=== PATIENT | female | born 1980 | race Caucasian/White ===

== ENCOUNTER 2020-04-15 18:48 | Emergency (ER) | payer MEDICAID, SELFPAY ==
[2020-04-15] VITALS (24 sets, daily range): BP systolic 153–164; BP diastolic 91–107; PULSE 73–108; RESP 8–26; TEMP 37.1; O2SAT 92–98; BMI 37.2
--- NOTE | 2020-04-15 19:30 | ECG_ITS ---
[facility] Test Date: 2020-04-15 Pat Name: Bella King Department: Room: Gender: Female Career Services Coordinator: : 1980 Requested By: Shaggy Ledesma Order Number: [id number] Eduardo MD: Gayla Fernandez M.D. Measurements Intervals [place] Rate: 90 P: 167 MN: 131 QRS: 147 QRSD: 81 T: 182 QT: 377 QTc: 462 Interpretive Statements SINUS RHYTHM ARM LEADS REVERSED [INVERTED P AND QRS IN I] No previous ECG available for comparison Electronically Signed On 04-15-2020 21:55:49 CAMPAIGN SPECIALIST by Gayla Fernandez M.D. [id number]
--- NOTE | 2020-04-15 19:40 | W.ED.ARRPALP ---
HPI - Arrhythmia/Palpitations General: Chief Complaint: Arrhythmia/Palpitations Stated Complaint: ANXIETY Time Seen by Provider: 04/15/20 19:20 History of Present Illness: HPI narrative: 39-year-old female with history of panic disorder. She states that she had a panic attack this morning, and ended up in the [facility], as they were they are visiting. No testing was done. They changed her medicine, as she had recently been placed on sertraline for anxiety. She had not taken her new medication yet, when she had another attack this evening. She says I do not feel right . I feel like I am dying with these . No fever, no cough, no swollen feet. MD complaint: heart racing and palpitations Onset (ago): hour(s) Duration: intermittent Severity: moderate Context: occurred during rest Associated symptoms: Reports anxiety, nausea and short of breath; Deny cough, diaphoresis or vomiting Review of Systems Const: Denies: diaphoresis Eyes: Denies: change in vision ENMT: Denies: odynophagia, swelling of lips/tongue or sinus pain Card: Reports: chest pain, palpitations and swelling of feet/ankles; Denies: irregular heart rhythm Resp: Reports: dyspnea; Denies: productive cough, non-productive cough or wheezing GI: Reports: nausea; Denies: vomiting : Denies: dysuria or hematuria Musc: Denies: neck pain or joint warmth Skin/Breast: Denies: rash or erythema Neuro: Reports: dizziness; Denies: headache(s) or vertigo Psych: Reports: anxiety [facility] Female Reproductive History: Date of last menstrual period: 03/28/20 Physical Exam Const: GENERAL APPEARANCE: well developed ORIENTATION/CONSCIOUSNESS: Yes oriented to person, Yes oriented to place and Yes oriented to time HENMT: COMMON NORMALS: normocephalic, external ears normal and Normal external nose present HEAD & SCALP: normocephalic FACE & SINUS: normal facial exam NOSE: Normal external nose present and No nasal discharge present EXTERNAL EAR: Yes external ears normal Eye: COMMON NORMALS: Equal, round and reactive pupils present, EOMs intact bilaterally and conjunctivae normal EYELID: eyelids normal CONJUNCTIVA: Yes conjunctivae normal PUPIL: Yes Equal, round and reactive pupils present Neck/C-Spine: GENERAL: No tracheal deviation Chest: COMMONS NORMALS: normal inspection of the chest CHEST: No tenderness Resp: COMMON NORMALS: clear to auscultation bilaterally EFFORT & INSPECTION: No tachypneic, No respiratory distress, No retractions, No uses accessory muscles and No tracheal deviation AUSCULTATION: clear to auscultation bilaterally, no rhonchi, no wheezes and lung sounds not diminished Cardio: COMMON NORMALS: regular rate and regular rhythm RATE: regular rate RHYTHM: regular rhythm HEART SOUNDS: no murmurs PERIPHERAL PULSES: radial pulses present GI: INSPECTION: No abdominal distension AUSCULTATION: No Hyperactive bowel sounds present and No Hypoactive bowel sounds present PALPATION: No Guarding due to palpation present (GI) and No Rigid due to palpation PERCUSSION: no dullness to percussion and no tympanic to percussion Neuro: SENSORIUM/ORIENTATION: Yes oriented to person, Yes oriented to place and Yes oriented to time Psych: COMMON NORMALS: mental status grossly normal Skin: COMMON NORMALS: no rashes or lesions noted GENERAL SKIN EXAM: no rashes or lesions noted Course Vital Signs: Vital signs: Vital Signs Temperature 98.8 F 04/15/20 19:01 Pulse Rate 90 04/15/20 22:52 Respiratory Rate 18 04/15/20 22:52 Blood Pressure 153/107 04/15/20 22:52 Pulse Oximetry 97 04/15/20 22:52 MDM - Arrhythmia/Palpitations MDM Narrative: Medical decision making narrative: 39-year-old female with a history of palpitations, and essentially panic. She has chest discomfort as well. Her EKG showed a normal sinus rhythm with no acute ST changes. White blood cell count is 12.7, hemoglobin 12.5. Electrolytes are essentially normal her D-dimer is negative. Her chest x-ray is negative. Her troponin is normal and did not change at 2 hours this may be a reaction to the sertraline she was prescribed, and may be simply panic. At her previous ER visit, she was told to stop the sertraline, and given a prescription for trazodone. She may fill this. I am going to place her on propranolol, which will hopefully help with the palpitations and anxiety as well. Lab Data: Labs: Lab Results 04/15/20 04/15/20 04/15/20 Range/Units 19:38 19:38 19:38 WBC 12.7 H (4.0-10.0) 10^3/ uL RBC 4.32 (4.1-5.3) 10^6/u L Hgb 12.5 (11.5-15.3) g/dL Hct 38.1 (37.0-47.0) % MCV 88.2 (81-99) fL MCH 28.9 (28.0-34.0) pg MCHC 32.8 (30.0-36.0) g/dL RDW 12.3 (12.1-15.1) % Plt Count 345 (130-400) 10^3/c mm MPV 9.7 (7.4-10.4) fL Neut % (Auto) 66.0 % Lymph % (Auto) 28.6 % [place] % (Auto) 4.0 % Eos % (Auto) 0.9 % Baso % (Auto) 0.3 % Neut # (Auto) 8.35 H (1.8-7.7) 10^3/u L Lymph # (Auto) 3.6 (0.8-4.8) 10^3/u L [place] # (Auto) 0.5 (0.2-0.9) 10^3/u L Eos # (Auto) 0.1 (0.0-0.8) 10^3/u L Baso # (Auto) 0.0 (0.0-0.1) 10^3/u L Nucleated RBC % (a uto) 0 % Nucleated RBCs # 0.0 /100WBC D-Dimer 0.39 (0-0.59) ug/mIFE U Sodium 135 L (136-145) mmol/L Potassium 3.8 (3.5-5.1) mmol/L Chloride 101 (98-107) mmol/L Carbon Dioxide 24 (22-29) mmol/L Anion Gap 13.8 (5-19) BUN 8 (6-20) mg/dL Creatinine 0.6 (0.5-0.9) mg/dL GFR Calculation 111.9 (90-130) mL/min Glucose 135 H (65-115) mg/dL Calculated Osmolal ity 280 L (285-295) mOsm/k g Calcium 9.4 (8.5-10.5) mg/dL Total Bilirubin 0.3 (0.15-1.2) mg/dL AST 20 (0-32) U/L ALT 29 (0-33) U/L Alkaline Phosphata se 80 (35-105) IU/L Creatine Kinase 87 (26-192) U/L Troponin T Baselin e (0-10) ng/L Troponin T 120 Min [place] (0-10) ng/L Delta Troponin T (0-10) ABS# NT-Pro-B Natriuret Pep 179 H (0-125) pg/mL Total Protein 6.9 (6.6-8.7) g/dL Albumin 4.4 (3.5-5.2) g/dL Globulin 2.5 (1.3-4.6) g/dL 04/15/20 04/15/20 Range/Units 19:38 21:19 WBC (4.0-10.0) 10^3/ uL RBC (4.1-5.3) 10^6/u L Hgb (11.5-15.3) g/dL Hct (37.0-47.0) % MCV (81-99) fL MCH (28.0-34.0) pg MCHC (30.0-36.0) g/dL RDW (12.1-15.1) % Plt Count (130-400) 10^3/c mm MPV (7.4-10.4) fL Neut % (Auto) % Lymph % (Auto) % [place] % (Auto) % Eos % (Auto) % Baso % (Auto) % Neut # (Auto) (1.8-7.7) 10^3/u L Lymph # (Auto) (0.8-4.8) 10^3/u L [place] # (Auto) (0.2-0.9) 10^3/u L Eos # (Auto) (0.0-0.8) 10^3/u L Baso # (Auto) (0.0-0.1) 10^3/u L Nucleated RBC % (a uto) % Nucleated RBCs # /100WBC D-Dimer (0-0.59) ug/mIFE U Sodium (136-145) mmol/L Potassium (3.5-5.1) mmol/L Chloride (98-107) mmol/L Carbon Dioxide (22-29) mmol/L Anion Gap (5-19) BUN (6-20) mg/dL Creatinine (0.5-0.9) mg/dL GFR Calculation (90-130) mL/min Glucose (65-115) mg/dL Calculated Osmolal ity (285-295) mOsm/k g Calcium (8.5-10.5) mg/dL Total Bilirubin (0.15-1.2) mg/dL AST (0-32) U/L ALT (0-33) U/L Alkaline Phosphata se (35-105) IU/L Creatine Kinase (26-192) U/L Troponin T Baselin e 6 (0-10) ng/L Troponin T 120 Min [place] 6.00 (0-10) ng/L Delta Troponin T 0 (0-10) ABS# NT-Pro-B Natriuret Pep (0-125) pg/mL Total Protein (6.6-8.7) g/dL Albumin (3.5-5.2) g/dL Globulin (1.3-4.6) g/dL Discharge Plan Discharge Patient Disposition: Home Clinical Impression: Palpitations Condition: Stable Prescriptions: New propranolol 60 mg capsule,extended release 24 hr 60 mg PO DAILY Qty: 30 RF: 0 Discharge Orders: Discharge ED (Routine); Ordered 04/15/20 Ordered By: Shaggy Chung Referrals: Dallas Gunn DO [Primary Care Provider] - 4-7 days Discharge Diet: Advance as tolerated Discharge Activity: Increase activity as tolerated Patient Instructions: Palpitations (ED) Activity Restrictions/Additional Instructions: Stop your sertraline, in case it is making your symptoms worse. Follow-up with your doctor. You have been prescribed propranolol, which can help with symptoms of heart pounding. We suggest that you check your blood pressure twice daily as well as your heart rate. Return for worsening symptoms despite treatment. Coding Level of Care Code ED Unit Leader for Chg Fwd Exam Comprehensive
[2020-04-15 19:44] LABS: Basophils % 0.3 %; Eosinophils # 0.1 10^3/uL (0.0-0.8); Eosinophils % 0.9 %; Hematocrit 38.1 % (37.0-47.0); Hemoglobin 12.5 g/dL (11.5-15.3); Lymphocytes # 3.6 10^3/uL (0.8-4.8); Lymphocytes % 28.6 %; Mean Corpuscular HGB Conc 32.8 g/dL (30.0-36.0); Mean Corpuscular Hemoglobin 28.9 pg (28.0-34.0); Mean Corpuscular Volume 88.2 fL (81-99); Mean Platelet Volume 9.7 fL (7.4-10.4); Monocytes # 0.5 10^3/uL (0.2-0.9); Neutrophils # 8.35 10^3/uL (1.8-7.7); Nucleated Red Blood Cells % 0 %; Platelet Count 345 10^3/cmm (130-400); Red Blood Count 4.32 10^6/uL (4.1-5.3); Red Cell Distribution Width 12.3 % (12.1-15.1); White Blood Count 12.7 10^3/uL (4.0-10.0)
[2020-04-15 20:13] LABS: D Dimer 0.39 ug/mIFEU (0-0.59)
[2020-04-15 20:20] LABS: Troponin(5th) Baseline 6 ng/L (0-10)
[2020-04-15 20:29] LABS: Alanine Aminotransferase 29 U/L (0-33); Albumin Level 4.4 g/dL (3.5-5.2); Alkaline Phosphatase 80 IU/L (35-105); Anion Gap 13.8 (5-19); Aspartate Amino Transferase 20 U/L (0-32); Blood Urea Nitrogen 8 mg/dL (6-20); Calcium 9.4 mg/dL (8.5-10.5); Carbon Dioxide 24 mmol/L (22-29); Chloride 101 mmol/L (98-107); Creatine Phosphokinase 87 U/L (26-192); Creatinine Clr Calc Pharmacy 139.5661; Globulin 2.5 g/dL (1.3-4.6); Glomerular Filtration Rate 111.9 mL/min (90-130); Glucose 135 mg/dL (65-115); NT Pro B Type Natriuretic Pept 179 pg/mL (0-125); Osmolality Calculated 280 mOsm/kg (285-295); Potassium 3.8 mmol/L (3.5-5.1); Sodium 135 mmol/L (136-145); Total Bilirubin 0.3 mg/dL (0.15-1.2); Total Protein 6.9 g/dL (6.6-8.7)
--- NOTE | 2020-04-15 21:30 | ECG_ITS ---
[facility] Test Date: 2020-04-15 Pat Name: Bella King Department: Room: Gender: Female Internal Grinding Machine Operator: : 1980 Requested By: Shaggy Ledesma Order Number: [id number] Eduardo MD: Gayla Fernandez M.D. Measurements Intervals [place] Rate: 90 P: 167 VT: 131 QRS: 147 QRSD: 81 T: 182 QT: 377 QTc: 462 Interpretive Statements SINUS RHYTHM ARM LEADS REVERSED [INVERTED P AND QRS IN I] No previous ECG available for comparison Electronically Signed On 04-15-2020 21:59:53 ANALYTICS CONSULTANT by Gayla Fernandez M.D. [id number]
[2020-04-15 21:59] LABS: Troponin 5 2HR Delta 0 ABS# (0-10)
--- NOTE | 2020-04-15 22:15 | XRR_ITS ---
PROCEDURE INFORMATION: Exam: XR Chest, 1 View Exam date and time: 04/15/2020 10:20 PM Age: 39 years old Clinical indication: Other: Palpitations TECHNIQUE: Imaging protocol: XR of the chest Views: 1 view. COMPARISON: [facility] Chest 2 views 07/16/2018 4:09 PM FINDINGS: Lungs: Unremarkable. No consolidation. Pleural space: Unremarkable. No pleural effusion. No pneumothorax. Heart/Mediastinum: Unremarkable. No cardiomegaly. Bones/joints: Unremarkable. XR/XR chest 1V portable [id number] IMPRESSION: No acute findings.
== END 2020-04-15 22:57 | disposition home or self-care (01) ==
PROVIDERS: Emergency Provider Emergency Medicine; PCP Internal Medicine
DX: R00.2 Palpitations (principal)
CPT/HCPCS: 12345; 71045; 80053; 82550; 83880; 84484; 85025; 85378; 93005; 99283

== ENCOUNTER 2020-05-25 03:03 | Emergency (ER) | payer MEDICAID, SELFPAY ==
--- NOTE | 2020-05-25 03:04 | XR_ITS ---
WS: [id number] Exam: XR chest 1V portable [id number] Date/Time of Exam: 05/25/2020 3:16 AM Reason For Exam: dizzy Comparison 04/15/2020. Findings: The lungs are clear and fully expanded. Costophrenic angles are sharp. No infiltrates. Bronchovascula r relief appears normal. Cardiac silhouette is unremarkable. Bony elements are intact. XR/XR chest 1V portable [id number] IMPRESSION: Unremarkable chest radiograph.
--- NOTE | 2020-05-25 03:05 | ECG_ITS ---
[facility] Test Date: 2020-05-25 Pat Name: Bella King Department: Room: Gender: Female Operating System Programmer: : 1980 Requested By: Yesika Turner Order Number: [id number] Eduardo MD: Carlie Cooley M.D. Measurements Intervals [place] Rate: 82 P: 14 OK: 80 QRS: 59 QRSD: 88 T: 5 QT: 372 QTc: 436 Interpretive Statements SINUS RHYTHM WITH SHORT OK INTERVAL Compared to ECG 04/15/2020 19:16:20 Short OK interval now present Electronically Signed On 05-25-2020 18:03:04 POULTRY SLAUGHTERER by Carlie Cooley M.D. [id number]
[2020-05-25 03:10] VITALS: BP 156/83; PULSE 101; RESP 18; TEMP 36.8; O2SAT 98; BMI 39.8
[2020-05-25 03:14] VITALS: BP 156/83; PULSE 92; O2SAT 98
--- NOTE | 2020-05-25 03:17 | ED_ITS ---
HPI - Nausea/Vomiting/Diarrhea General: Chief complaint: Nausea/Vomiting/Diarrhea Stated complaint: NAUSEA, DIZZY, WEAK LEGS/WOBBLY, HIGH BLOOD SUGAR Time Seen by Provider: 05/25/20 03:05 Source: patient Mode of arrival: ambulatory Limitations: no limitations History of Present Illness: HPI Narrative: This is a 39-year-old female states over the last month to 6 weeks she has been having difficulty with anxiety along with nausea dizziness. She states she initially was on Zoloft that made her symptoms worse. She states she then took propanol and she stopped due to her asthma. She states she is currently on BuSpar but continues to have this nausea and feeling very anxious. She states that tonight she been checking her blood sugar and she was quite concerned as it ranged from 1 10-1 70. She states she has felt dizzy and nauseated. She denies any pain anywhere. She denies passing out. She denies any vomiting. Denies any worsening improving factors. Associated nausea: Yes Associated symtoms: Reports dizziness and nausea; Denies chest pain, dysuria or headache(s) Review of Systems Const: Denies: fever(s), chills, body aches or change in appetite Eyes: Denies: blurry vision or eye discomfort ENMT: Denies: throat pain or dental pain Card: Denies: chest pain Resp: Denies: dyspnea GI: Reports: nausea : Denies: dysuria Musc: Reports: muscle weakness Skin/Breast: Denies: rash Neuro: Reports: dizziness; Denies: headache(s) Psych: Denies: depression [place]/Lymph: Denies: easy bruising All/Imm: Denies: urticaria [facility] Female Reproductive History: Date of last menstrual period: 03/28/20 Physical Exam Const: COMMON NORMALS: no acute distress, patient oriented x3 and healthy appearing HENMT: COMMON NORMALS: normocephalic and atraumatic HEAD & SCALP: normocephalic and atraumatic Eye: COMMON NORMALS: Equal, round and reactive pupils present and EOMs intact bilaterally PUPIL: Yes Equal, round and reactive pupils present Neck/C-Spine: COMMON NORMALS: full ROM and supple Chest: COMMONS NORMALS: normal inspection of the chest and normal palpation of entire chest wall Resp: COMMON NORMALS: normal respiratory effort, No retractions, No use of accessory muscles and clear to auscultation bilaterally AUSCULTATION: clear to auscultation bilaterally Cardio: COMMON NORMALS: regular rate, regular rhythm and No murmurs present (Cardio) RATE: regular rate RHYTHM: regular rhythm GI: COMMON NORMALS: Normal to inspection, nondistended, normoactive bowel sounds present, Soft to palpation, non-tender and no masses PALPATION: Yes Soft to palpation Extremity: COMMON NORMALS: normal to inspection and full ROM Neuro: COMMON NORMALS: patient oriented x3, moves all extremities and no focal motor deficits Psych: COMMON NORMALS: mental status grossly normal, Normal thought process present and cooperative THOUGHT PROCESS: Normal thought process present Skin: COMMON NORMALS: no rashes or lesions noted and no wounds GENERAL SKIN EXAM: no rashes or lesions noted Course Vital Signs: Vital signs: Vital Signs Temperature 98.2 F 05/25/20 03:10 Pulse Rate 101 H 05/25/20 03:10 Respiratory Rate 18 05/25/20 03:10 Blood Pressure 156/83 05/25/20 03:10 Pulse Oximetry 98 05/25/20 03:10 MDM - Nausea/Vomiting/Diarrhea MDM Narrative: Medical decision making narrative: Patient presents here with nausea along with some dizziness. This been going on for weeks. Her exam here is benign and blood work is all normal. Will prescribe her Reglan and she is to follow-up with her PCP in 3 to 5 days return if worsening. She understands agrees to plan. Lab Data: Labs: Lab Results 05/25/20 05/25/20 05/25/20 Range/Units 03:25 03:25 03:30 WBC 10.9 H (4.0-10.0) 10^3/ uL RBC 4.25 (4.1-5.3) 10^6/u L Hgb 12.6 (11.5-15.3) g/dL Hct 38.2 (37.0-47.0) % MCV 89.9 (81-99) fL MCH 29.6 (28.0-34.0) pg MCHC 33.0 (30.0-36.0) g/dL RDW 12.8 (12.1-15.1) % Plt Count 380 (130-400) 10^3/c mm MPV 9.8 (7.4-10.4) fL Neut % (Auto) 55.1 % Lymph % (Auto) 38.5 % [place] % (Auto) 4.0 % Eos % (Auto) 1.8 % Baso % (Auto) 0.4 % Neut # (Auto) 6.02 (1.8-7.7) 10^3/u L Lymph # (Auto) 4.2 (0.8-4.8) 10^3/u L [place] # (Auto) 0.4 (0.2-0.9) 10^3/u L Eos # (Auto) 0.2 (0.0-0.8) 10^3/u L Baso # (Auto) 0.0 (0.0-0.1) 10^3/u L Nucleated RBC % (a uto) 0 % Nucleated RBCs # 0.0 /100WBC Sodium 140 (136-145) mmol/L Potassium 4.0 (3.5-5.1) mmol/L Chloride 105 (98-107) mmol/L Carbon Dioxide 19 L (22-29) mmol/L Anion Gap 20.0 H (5-19) BUN 16 (6-20) mg/dL Creatinine 0.7 (0.5-0.9) mg/dL GFR Calculation 93.6 (90-130) mL/min Glucose 131 H (65-115) mg/dL POC Glucose 125 H (70-110) mg/dL Calculated Osmolal ity 293 (285-295) mOsm/k g Calcium 9.4 (8.5-10.5) mg/dL Total Bilirubin 0.2 (0.15-1.2) mg/dL AST 16 (0-32) U/L ALT 12 (0-33) U/L Alkaline Phosphata se 58 (35-105) IU/L Total Protein 7.0 (6.6-8.7) g/dL Albumin 4.2 (3.5-5.2) g/dL Globulin 2.8 (1.3-4.6) g/dL HCG, Qual (Negative) Urine Color (Yellow) Urine Appearance (CLEAR) Urine pH (5-7) Ur Specific Gravit y (1.005-1.030) Urine Protein (Negative) Urine Glucose (UA) (Normal) Urine Ketones (Negative) Urine Blood (Negative) Urine Nitrate (Negative) Urine Bilirubin (Negative) Urine Urobilinogen (Negative) mg/dL Ur Leukocyte Rufina ase (Negative) Urine RBC (0-2) /hpf Urine WBC (0-5) /hpf Ur Squamous Epith Cells (0-5) /hpf Amorphous Sediment Urine Bacteria (NONE) /hpf Urine Mucus /hpf Serum Ketones (Negative) 05/25/20 05/25/20 05/25/20 Range/Units 03:30 03:30 04:04 WBC (4.0-10.0) 10^3/ uL RBC (4.1-5.3) 10^6/u L Hgb (11.5-15.3) g/dL Hct (37.0-47.0) % MCV (81-99) fL MCH (28.0-34.0) pg MCHC (30.0-36.0) g/dL RDW (12.1-15.1) % Plt Count (130-400) 10^3/c mm MPV (7.4-10.4) fL Neut % (Auto) % Lymph % (Auto) % [place] % (Auto) % Eos % (Auto) % Baso % (Auto) % Neut # (Auto) (1.8-7.7) 10^3/u L Lymph # (Auto) (0.8-4.8) 10^3/u L [place] # (Auto) (0.2-0.9) 10^3/u L Eos # (Auto) (0.0-0.8) 10^3/u L Baso # (Auto) (0.0-0.1) 10^3/u L Nucleated RBC % (a uto) % Nucleated RBCs # /100WBC Sodium (136-145) mmol/L Potassium (3.5-5.1) mmol/L Chloride (98-107) mmol/L Carbon Dioxide (22-29) mmol/L Anion Gap (5-19) BUN (6-20) mg/dL Creatinine (0.5-0.9) mg/dL GFR Calculation (90-130) mL/min Glucose (65-115) mg/dL POC Glucose (70-110) mg/dL Calculated Osmolal ity (285-295) mOsm/k g Calcium (8.5-10.5) mg/dL Total Bilirubin (0.15-1.2) mg/dL AST (0-32) U/L ALT (0-33) U/L Alkaline Phosphata se (35-105) IU/L Total Protein (6.6-8.7) g/dL Albumin (3.5-5.2) g/dL Globulin (1.3-4.6) g/dL HCG, Qual Negative (Negative) Urine Color Yellow (Yellow) Urine Appearance Clear (CLEAR) Urine pH 5.0 (5-7) Ur Specific Gravit y 1.020 (1.005-1.030) Urine Protein Neg (Negative) Urine Glucose (UA) Norm (Normal) Urine Ketones Negative (Negative) Urine Blood 2+ H (Negative) Urine Nitrate Negative (Negative) Urine Bilirubin Neg (Negative) Urine Urobilinogen Norm (Negative) mg/dL Ur Leukocyte Rufina ase Negative (Negative) Urine RBC 0-4 H (0-2) /hpf Urine WBC 10-15 H (0-5) /hpf Ur Squamous Epith Cells None (0-5) /hpf Amorphous Sediment Not Reportable Urine Bacteria 2+ H (NONE) /hpf Urine Mucus 1+ /hpf Serum Ketones Negative (Negative) Imaging Data^: CXR: Radiologist's impression: no acute abnormalities EKG Data^: EKG 1: Attestation: I personally reviewed and interpreted this EKG as follows: EKG interpretation date: 05/25/20 EKG interpretation time: 03:35 Interpretation: nsr hr [address] abnormalities qrs 88 qtc 411 Discharge Plan Discharge Patient Disposition: Home Clinical Impression: Dizziness Vomiting Qualifiers: Vomiting type: unspecified Vomiting Intractability: non-intractable Nausea presence: with nausea Qualified Code(s): R11.2 - Nausea with vomiting, unspecified Condition: Stable Prescriptions: New Reglan 10 mg tablet 10 mg PO Q6H PRN (Reason: nausea and vomiting) Qty: 20 RF: 0 No Action propranolol 60 mg capsule,extended release 24 hr 60 mg PO DAILY Qty: 30 RF: 0 Discharge Orders: Discharge ED (Routine); Ordered 05/25/20 Ordered By: Yesika Turner Referrals: Dallas Gunn DO [Primary Care Provider] - 1-3 days Discharge Diet: Advance as tolerated Discharge Activity: Resume usual activity Patient Instructions: Acute Nausea and Vomiting (ED) Coding Level of Care Code ED Supervisor Pullet Farm for Chg Fwd Exam Comprehensive
[2020-05-25 03:30] LABS: Glucose Point of Care 125 mg/dL (70-110)
[2020-05-25] MEDS: sodium chloride 0.9% 1,000 ML 999 ML IV (03:33)
[2020-05-25] MEDS: ondansetron 2 mg/ML SDV 2 mL 4 MG IVP (03:33)
[2020-05-25 04:05] LABS: Basophils % 0.4 %; Eosinophils # 0.2 10^3/uL (0.0-0.8); Eosinophils % 1.8 %; Hematocrit 38.2 % (37.0-47.0); Hemoglobin 12.6 g/dL (11.5-15.3); Lymphocytes # 4.2 10^3/uL (0.8-4.8); Lymphocytes % 38.5 %; Mean Corpuscular Hemoglobin 29.6 pg (28.0-34.0); Mean Corpuscular Volume 89.9 fL (81-99); Mean Platelet Volume 9.8 fL (7.4-10.4); Monocytes # 0.4 10^3/uL (0.2-0.9); Neutrophils # 6.02 10^3/uL (1.8-7.7); Neutrophils % 55.1 %; Nucleated Red Blood Cells % 0 %; Platelet Count 380 10^3/cmm (130-400); Red Blood Count 4.25 10^6/uL (4.1-5.3); Red Cell Distribution Width 12.8 % (12.1-15.1); White Blood Count 10.9 10^3/uL (4.0-10.0)
[2020-05-25 04:08] LABS: Ketone (Acetest) Serum Negative (Negative)
[2020-05-25 04:20] VITALS: BP 128/91; PULSE 91; O2SAT 98
[2020-05-25 04:31] LABS: HCG Qualitative Urine. Negative (Negative)
[2020-05-25 04:40] LABS: Urine Appearance Clear (CLEAR); Urine Color Yellow (Yellow)
[2020-05-25 04:41] LABS: Add Urine Culture? Yes; Add Urine Microscopic? YES; Bacteria Urine 2+ /hpf; Bilirubin Urine Neg (Negative); Blood Urine 2+ (Negative); Glucose Urine UA Norm (Normal); Ketones Urine Negative (Negative); Leukocyte Esterase Urine Negative (Negative); Mucus Urine 1+ /hpf; Nitrate Urine Negative (Negative); Protein Urine Neg (Negative); RBC Urine 0-4 /hpf (0-2); Urobilinogen Urine Norm (Negative)
[2020-05-25 04:47] LABS: Alanine Aminotransferase 12 U/L (0-33); Albumin Level 4.2 g/dL (3.5-5.2); Alkaline Phosphatase 58 IU/L (35-105); Aspartate Amino Transferase 16 U/L (0-32); Blood Urea Nitrogen 16 mg/dL (6-20); Calcium 9.4 mg/dL (8.5-10.5); Carbon Dioxide 19 mmol/L (22-29); Chloride 105 mmol/L (98-107); Globulin 2.8 g/dL (1.3-4.6); Glomerular Filtration Rate 93.6 mL/min (90-130); Glucose 131 mg/dL (65-115); Osmolality Calculated 293 mOsm/kg (285-295); Sodium 140 mmol/L (136-145); Total Bilirubin 0.2 mg/dL (0.15-1.2)
[2020-05-25] MEDS: diphenhydrAMINE 50 mg/mL SDV 1mL 25 MG IVP (04:52)
[2020-05-25] MEDS: metoclopramide 5 mg/mL SDV 2 mL IVP (04:55)
[2020-05-25 05:22] VITALS: BP 130/90; PULSE 77; RESP 18; O2SAT 96
== END 2020-05-25 05:22 | disposition home or self-care (01) ==
PROVIDERS: Emergency Provider Emergency Medicine; PCP Internal Medicine
DX: R11.2 Nausea with vomiting, unspecified (principal); R42 Dizziness and giddiness
CPT/HCPCS: 12345; 36416; 71045; 80053; 81001; 81025; 82009; 82962; 85025; 87086; 93005; 96361; 96374; 96375; 99283; 99284; J1200; J2405; J2765; J7030

== ENCOUNTER 2021-02-13 16:07 | Outpatient (CLI) | payer MEDICAID, SELFPAY ==
[2021-02-13 17:15] LABS: Basophils % 0.3 %; Eosinophils # 0.2 10^3/uL (0.0-0.8); Eosinophils % 1.9 %; Hematocrit 40.2 % (37.0-47.0); Hemoglobin 13.6 g/dL (11.5-15.3); Lymphocytes # 3.3 10^3/uL (0.8-4.8); Lymphocytes % 31.2 %; Mean Corpuscular HGB Conc 33.8 g/dL (30.0-36.0); Mean Corpuscular Hemoglobin 29.1 pg (28.0-34.0); Mean Corpuscular Volume 85.9 fl (81-99); Mean Platelet Volume 10.4 fL (7.4-10.4); Monocytes # 0.5 10^3/uL (0.2-0.9); Monocytes % 4.5 %; Neutrophils # 6.47 10^3/uL (1.8-7.7); Neutrophils % 61.9 %; Nucleated Red Blood Cells % 0 %; Platelet Count 321 10^3/cmm (130-400); Red Blood Count 4.68 10^6/uL (4.1-5.3); Red Cell Distribution Width 12.5 % (12.1-15.1); White Blood Count 10.5 10^3/uL (4.0-10.0)
[2021-02-13 17:39] LABS: Alanine Aminotransferase 16 U/L (0-33); Albumin Level 4.2 g/dL (3.5-5.2); Alkaline Phosphatase 80 IU/L (35-105); Aspartate Amino Transferase 17 U/L (0-32); Blood Urea Nitrogen 12 mg/dL (6-20); Calcium 8.9 mg/dL (8.5-10.5); Carbon Dioxide 21 mmol/L (22-29); Chloride 100 mmol/L (98-107); Chol HDL Ratio 4.38 mg/dL (0.0-4.40); Cholesterol 197 mg/dL (0-200); Globulin 2.8 g/dL (1.3-4.6); Glomerular Filtration Rate 111.3 mL/min (90-130); Glucose 88 mg/dL (65-115); HDL Cholesterol 45 mg/dL (60-100); LDL Cholesterol Calculated 93 mg/dL (50-129); LDL HDL Ratio 2.07 RATIO (0.00-3.22); Osmolality Calculated 279 mOsm/kg (285-295); Sodium 135 mmol/L (136-145); Total Bilirubin 0.2 mg/dL (0.15-1.2); Triglycerides 296 mg/dL (0-150)
[2021-02-13 17:49] LABS: Anion Gap 18.1 (5-19); Potassium 4.1 mmol/L (3.5-5.1)
== END 2021-02-13 16:08 | disposition home or self-care (01) ==
PROVIDERS: PCP Family Medicine; Visit Provider Family Medicine
DX: E66.9 Obesity, unspecified (principal); F41.0 Panic disorder [episodic paroxysmal anxiety]; F41.1 Generalized anxiety disorder; J30.2 Other seasonal allergic rhinitis; J45.30 Mild persistent asthma, uncomplicated; Z13.220 Encounter for screening for lipoid disorders; Z13.6 Encounter for screening for cardiovascular disorders; Z76.89 Persons encountering health services in other specified circumstances
CPT/HCPCS: 36415; 80053; 80061; 84443; 85025

== ENCOUNTER → 2021-07-04 17:15 | Outpatient (BNVA) | payer MEDICAID, SELFPAY | PROVIDERS: PCP Family Medicine; Visit Provider Nurse Practitioner Family | DX: N39.0 Urinary tract infection, site not specified (principal) | CPT/HCPCS: 81000 ==

== ENCOUNTER → 2021-07-11 16:02 | Outpatient (BNVA) | payer MEDICAID, SELFPAY | PROVIDERS: PCP Family Medicine; Visit Provider Family Medicine | DX: R30.0 Dysuria (principal); R10.31 Right lower quadrant pain | CPT/HCPCS: 81000; 87086 ==

== ENCOUNTER 2022-07-23 21:15 | Emergency (ER) | payer MEDICAID, SELFPAY ==
[2022-07-23 21:38] VITALS: BP 154/99; PULSE 84; RESP 18; TEMP 36.6; O2SAT 98; BMI 42.5
--- NOTE | 2022-07-23 21:53 | W.ED.HEATRA ---
HPI - Head Injury General: Chief complaint: Head Injury Stated complaint: door fell on head, worried about concussion? 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 While walking across to stage a door came down and struck her against the right side of her head. Patient denies any loss of consciousness. Patient reports mild headache with some difficulty thinking. Patient appears in no pain. Patient appears nontoxic. Patient does have a history of obesity, anxiety disorder, asthma, and GERD. Associated symptoms: Deny nausea, neck pain or vomiting Review of Systems General: Reports: 10 or more systems reviewed and unremarkable except in HPI and below Const: Denies: fever(s) ENMT: Reports: epistaxis Card: Denies: chest pain Resp: Denies: dyspnea GI: Denies: nausea or vomiting : Denies: difficulty voiding Musc: Denies: neck pain Skin/Breast: Denies: rash Neuro: Denies: lack of coordination or dizziness Psych: Denies: anxiety PFSH ED PFSH: Social History Smoking and tobacco status: never smoked Alcohol intake: never Female Reproductive History: Spontaneous abortions: No Physical Exam Const: COMMON NORMALS: patient oriented x3 and alert HENMT: COMMON NORMALS: normocephalic HEAD & SCALP: normocephalic Neck/C-Spine: COMMON NORMALS: full ROM CERVICAL SPINE: No Cervical spine tenderness and Yes Paracervical muscle tenderness (Right trapezius) Resp: COMMON NORMALS: normal respiratory effort and clear to auscultation bilaterally AUSCULTATION: clear to auscultation bilaterally Cardio: COMMON NORMALS: regular rate and regular rhythm RATE: regular rate RHYTHM: regular rhythm GI: COMMON NORMALS: Soft to palpation and non-tender PALPATION: Yes Soft to palpation : COMMON NORMALS: Yes no CVA tenderness BLADDER/KIDNEY EXAM: Yes no CVA tenderness Back/Pelvis: COMMON NORMALS: no CVA tenderness Extremity: COMMON NORMALS: normal to inspection Neuro: COMMON NORMALS: patient oriented x3 SENSORIUM/ORIENTATION: Yes alert Skin: COMMON NORMALS: turgor normal GENERAL SKIN EXAM: turgor normal Course Vital Signs: Vital signs: Vital Signs Temperature 97.8 F 07/23/22 21:38 Pulse Rate 84 07/23/22 21:38 Respiratory Rate 18 07/23/22 21:38 Blood Pressure 154/99 07/23/22 21:38 Pulse Oximetry 98 07/23/22 21:38 Oxygen Delivery Me thod 07/23/22 21:38 MDM - Head Injury Medcial Decision Making 41-year-old female comes in today with complaints of head injury. On exam no obvious sign of injuries noted to the scalp. Pupils are equal and reactive. No blood is noted in the nose. Or posterior pharynx. Bilateral TMs are normal. Patient moves neck without difficulty. No tenderness is noted along the cervical spine. Patient does have some muscle tenderness in the right trapezius. Vital signs normal except for some mild elevation of blood pressure at 154 systolic. Differential diagnosis includes concussion, mild head injury, contusions. No signs of serious injury or illness is noted. Reviewed exam with patient with recommendations for monitoring and follow-up. Patient and spouse both reported understanding agreed to plan. Discharge Plan Discharge Patient Disposition: Home Clinical Impression: Head injury Qualifiers: Encounter type: initial encounter Qualified Code(s): S09.90XA - Unspecified injury of head, initial encounter Condition: Stable Prescriptions: No Action dicyclomine 10 mg capsule 10 mg PO BID fluticasone propionate 110 mcg/actuation HFA aerosol inhaler 1 puff inhalation BID Qty: 12 5RF azithromycin [Zithromax Z-Carloz] 250 mg tablet See Rx Instructions PO .COMPLEX Qty: 6 0RF Rx Instructions: take 500 mg today (day 1), then 250 mg for 4 days (days 2-5) PO prednisone 20 mg tablet See Rx Instructions PO DAILY Qty: 17 0RF Rx Instructions: Take 2 tabs daily x 5 days, then one tab daily x 5 days, then 1/2 tab daily x 4 days. escitalopram oxalate 10 mg tablet See Rx Instructions .ROUTE .COMPLEX Qty: 90 2RF Dose Instruction: Take 1 tablet by mouth once daily Rx Instructions: Take 1 tablet by mouth once daily montelukast 10 mg tablet See Rx Instructions .ROUTE .COMPLEX Qty: 30 5RF Dose Instruction: Take 1 tablet by mouth once daily Rx Instructions: Take 1 tablet by mouth once daily albuterol sulfate [ProAir HFA] 90 mcg/actuation HFA aerosol inhaler 1 inh inhalation QID PRN (Reason: shortness of breath or wheezing) Qty: 8.5 2RF pantoprazole 40 mg tablet,delayed release (DR/EC) See Rx Instructions .ROUTE .COMPLEX Qty: 30 0RF Dose Instruction: Take 1 tablet by mouth once daily Rx Instructions: Take 1 tablet by mouth once daily ipratropium-albuterol 0.5 mg-3 mg(2.5 mg base)/3 mL solution for nebulization 3 ml inhalation Q4H PRN (Reason: wheezing) Qty: 90 2RF alprazolam 0.25 mg tablet 0.25 mg PO DAILY PRN (Reason: anxiety) Qty: 30 2RF Discharge Orders: Discharge ED (Routine); Ordered 07/23/22 Ordered By: Demetrio Garcia Referrals: Colton Cardenas DO [Primary Care Provider] - Discharge Diet: Usual diet Discharge Activity: Increase activity as tolerated Patient Instructions: Head Injury (ED) Activity Restrictions/Additional Instructions: Home and rest. Use acetaminophen or ibuprofen for pain. Drink plenty of water. Try to limit screen time as much as possible for the next 48 hours. Increase activity then as tolerated. Follow-up with primary care as needed. Return to ED for worsening symptoms such as persistent vomiting, worsening headache, seizure activity, or unresponsiveness. Patient should be checked on every 2-3 hours at night. 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
== END 2022-07-23 22:07 | disposition home or self-care (01) ==
PROVIDERS: Emergency Provider Nurse Practitioner Family; PCP Family Medicine
DX: S09.8XXA Other specified injuries of head, initial encounter (principal); W20.8XXA Other cause of strike by thrown, projected or falling object, initial encounter
CPT/HCPCS: 99282

== ENCOUNTER → 2022-09-24 10:08 | Outpatient (BNVA) | payer MEDICAID, SELFPAY | PROVIDERS: PCP Family Medicine; Visit Provider Podiatrist Foot & Ankle Surgery | DX: M76.821 Posterior tibial tendinitis, right leg; Q66.71 Congenital pes cavus, right foot; S93.401A Sprain of unspecified ligament of right ankle, initial encounter; W54.1XXA Struck by dog, initial encounter | CPT/HCPCS: 73610 ==

== ENCOUNTER 2022-10-11 13:38 | Outpatient (CLI) | payer MEDICAID, SELFPAY ==
--- NOTE | 2022-10-11 13:45 | MR_ITS ---
WS: [id number] EXAMINATION: MR ankle RT wo con* [id number] ORDER DATE: 10/11/2022 2:05 PM COMPARISON: None. HISTORY: Right ankle pain CONTRAST: None. TECHNIQUE: Axial proton density fat sat, axial T1, sagittal proton density, sagittal STIR, coronal T2 fat sat, and coronal T1 sequences performed. After contrast, axial T1 fat sat, coronal T1 fat sat, and sagittal T1 fat sat were performed. FINDINGS: Normal ankle mortise. Normal medial and lateral malleolus. Normal talar dome. Normal calcaneus. Catalina l talus. Normal talonavicular articulation. Distal Achilles appears normal. Trace fluid in the retroc alcaneal bursa. Palpable marker overlying the tip of the medial malleolus. Underlying subcutaneous and soft tissue ed jun. Trace tenosynovitis underlying tibialis posterior. Normal flexor digitorum longus.Tenosynovitis peroneal tendon sheath. Peroneus longus and brevis intact. Base of 5th metatarsal is normal in appearance. Normal cuneiforms. Normal ATFL. Normal calcaneofibula r ligament. Normal PTFL. MR/MR ankle RT wo con* [id number] IMPRESSION: 1. Palpable marker overlying the tip of the medial malleolus. No avulsion frac tures. Diffuse edema deep to the palpable marker. 2. Normal deltoid ligament. 3. Trace tenosynovitis tibialis posterior. 4. Tenosynovitis peroneal tendon sheath. 5. Trace fluid in the retrocalcaneal bursa. 6. ATFL appears intact. Calcaneofibular ligament appears intact.
== END 2022-10-11 13:39 | disposition home or self-care (01) ==
PROVIDERS: PCP Family Medicine; Visit Provider Podiatrist Foot & Ankle Surgery
DX: M76.821 Posterior tibial tendinitis, right leg (principal); M25.571 Pain in right ankle and joints of right foot; M84.373A Stress fracture, unspecified ankle, initial encounter for fracture; R60.0 Localized edema
CPT/HCPCS: 73721

== ENCOUNTER → 2022-11-18 10:13 | Outpatient (BNVA) | payer MEDICAID, SELFPAY | PROVIDERS: PCP Family Medicine; Visit Provider Family Medicine | DX: J45.40 Moderate persistent asthma, uncomplicated (principal); R23.2 Flushing; K21.9 Gastro-esophageal reflux disease without esophagitis; E66.9 Obesity, unspecified; Z13.220 Encounter for screening for lipoid disorders; Z13.6 Encounter for screening for cardiovascular disorders; F41.1 Generalized anxiety disorder; F41.0 Panic disorder [episodic paroxysmal anxiety]; E83.52 Hypercalcemia | CPT/HCPCS: 80053; 80061; 82306; 82607; 83036; 84439; 84443; 85025 ==

== ENCOUNTER 2023-04-08 18:50 | Emergency (ER) | payer MEDICAID, SELFPAY ==
[2023-04-08 19:01] VITALS: BP 179/119; PULSE 82; RESP 17; TEMP 36.6; O2SAT 100; BMI 44.6
--- NOTE | 2023-04-08 21:10 | W.ED.HA ---
HPI - Headache General: Chief Complaint: Headache Stated Complaint: Blood Pressure Time Seen by Provider: 04/08/23 18:56 History of Present Illness: 42-year-old female presents emergency room department complaints of a 4 out of 10 throbbing headache. She still she states she feels like she has significant head pressure all over. She states she was seen by her primary care provider and told to take her blood pressure for 1 week and then to follow-up. She states that she took her blood pressure and her blood pressure was significantly elevated to a systolic of 150s. She states that she became more concerned as she does have anxiety component and is very concerned about her blood pressure. She denies shortness of breath dizziness or lightheaded feeling. She denies difficulty with vision or neck pain. She denies chest pain. Review of Systems General: Reports: 10 or more systems reviewed and unremarkable except in HPI and below Neuro: Reports: headache(s) [facility] ED PFSH: Social History Smoking and tobacco/nicotine status: never used tobacco/nicotine Alcohol intake: never Substance/Drug Use: never Female Reproductive History: Spontaneous abortions: No Physical Exam Narrative: EXAM NARRATIVE: Constitutional: the patient appears well nourished and with normal development. Vital signs reviewed as documented. HENMT: Normocephalic, atraumatic. Extermal ears with normal appearance without drainage. Nose without drainage, normal appearance. Mucus membranes moist. Neck is supple, No jugular venous distension, trachea is midline, no appreciable carotid bruits. No lymphadenopathy. No meningeal signs. Flexion, extension and lateral rotation is without pain. Eyes: Pupils are equal, round, reactive to light and accommodation. No scleral icterus. Extra-ocular movement are intact. Thorax is symmetrical and with equal rise and fall with respirations. Resp: Lungs are clear to auscultation. No wheezes, rales, crackles or ronchi at present. Cardio: Regular rate and rhythm. Positive S1, S2. No appreciable murmurs, rubs or gallops. GI: Abdominal exam reveals normal bowel sounds to all quadrants. No organomegaly. No obvious palpable masses noted. No hepatomegally appreciated. Soft, nontender to palpation. Extremity: Extremities are non-edematous and both femoral and pedal pulses are 2+ and equal bilaterally. Moves all extremities well, sensation in all extremities. Neuro: Alert and oriented x4, person, place, time and situation. Cranial nerves II through XII are grossly intact, there is no focal neurological deficits that I can appreciate at present. Motor strength in the upper and lower extremities are equal and bilateral 5/5. Psych: Cooperative, calm, normal thought process, appropriate judgment. Skin: No lesions, rashes. No gross abnormalities noted. Back: Symmetrical, no obvious deformity, No CVA tenderness Course Reevaluation(s): Reevaluation #1: Reevaluation after patient received her antihypertensive medications and pain medication for control of her headache. She states that she has significant improvement and relief of her headache. Her blood pressure is significantly improved. She is currently eating [employer] in the room with her significant other. I did discuss the importance of lifestyle modifications and a low-salt diet to help assist in control of her hypertension. I will provide her written prescription for antihypertensive medications. And have her follow-up with her primary care provider. Time: 22:56 Vital Signs: Vital signs: Vital Signs Temperature 97.9 F 04/08/23 19:01 Pulse Rate 82 04/08/23 19:01 Respiratory Rate 17 04/08/23 19:01 Blood Pressure 171/97 04/08/23 22:17 Pulse Oximetry 100 04/08/23 19:01 Oxygen Delivery Me thod Room Air 04/08/23 19:01 MDM - Headache Medical Decision Making Physical exam completed and documented, I will obtain CBC CMP cardiac enzymes as well as provide her Toradol for her headache pain. I will provide her with clonidine for her elevated blood pressure. Medical Records I reviewed the patient's medical records. Lab Data I reviewed the patient's lab results. 04/08/23 21:41 04/08/23 21:41 Laboratory Results WBC 11.91 10^3/uL (3.29-11.43) H 04/08/23 21:41 RBC 4.48 10^6/uL (3.85-5.65) 04/08/23 21:41 Hgb 12.70 g/dL (11.27-16.99) 04/08/23 21:41 Hct 38.0 % (36-47) 04/08/23 21:41 MCV 84.8 fl (85-98) L 04/08/23 21:41 MCH 28.3 pg (27-33) 04/08/23 21:41 MCHC 33.4 g/dL (30-55) 04/08/23 21:41 RDW 13.0 % (12.1-15.1) 04/08/23 21:41 Plt Count 329 10^3/cmm (157-399) 04/08/23 21:41 MPV 9.8 fL (7.4-10.4) 04/08/23 21:41 Neut % (Auto) 60.2 % 04/08/23 21:41 Lymph % (Auto) 32.8 % 04/08/23 21:41 Christian % (Auto) 4.9 % 04/08/23 21:41 Eos % (Auto) 1.6 % 04/08/23 21:41 Baso % (Auto) 0.3 % 04/08/23 21:41 Neut # (Auto) 7.18 10^3/uL (1.8-7.7) 04/08/23 21:41 Lymph # (Auto) 3.9 10^3/uL (0.8-4.8) 04/08/23 21:41 Christian # (Auto) 0.6 10^3/uL (0.2-0.9) 04/08/23 21:41 Eos # (Auto) 0.2 10^3/uL (0.0-0.8) 04/08/23 21:41 Baso # (Auto) 0.0 10^3/uL (0.0-0.1) 04/08/23 21:41 Nucleated RBC % (auto) 0 % 04/08/23 21:41 Nucleated RBCs # 0.0 /100WBC 04/08/23 21:41 Sodium 137 mmol/L (136-145) 04/08/23 21:41 Potassium 4.0 mmol/L (3.5-5.1) 04/08/23 21:41 Chloride 101 mmol/L (98-107) 04/08/23 21:41 Carbon Dioxide 23 mmol/L (22-29) 04/08/23 21:41 Anion Gap 17.0 (5-19) 04/08/23 21:41 BUN 12 mg/dL (6-20) 04/08/23 21:41 Creatinine 0.6 mg/dL (0.5-0.9) 04/08/23 21:41 GFR Calculation 110.2 mL/min (90-130) 04/08/23 21:41 Glucose 106 mg/dL (65-115) 04/08/23 21:41 Calculated Osmolality 284 mOsm/kg (285-295) L 04/08/23 21:41 Calcium 9.4 mg/dL (8.5-10.5) 04/08/23 21:41 Total Bilirubin 0.3 mg/dL (0.15-1.2) 04/08/23 21:41 AST 30 U/L (0-32) 04/08/23 21:41 ALT 40 U/L (0-33) H 04/08/23 21:41 Alkaline Phosphatase 91 U/L (35-105) 04/08/23 21:41 Total Protein 7.4 g/dL (6.6-8.7) 04/08/23 21:41 Albumin 4.4 g/dL (3.5-5.2) 04/08/23 21:41 Globulin 3.0 g/dL (1.3-4.6) 04/08/23 21:41 No radiology studies performed this visit EKG Data EKG 1: Interpretation: Twelve-lead EKG obtained at 2123 demonstrates sinus rhythm at a ventricular rate of 84 bpm, RI interval 114 QRS duration 96 QT 404 QTc [address] elevation or depression to demonstrate acute ischemia, at present. Discharge Plan Discharge Patient Disposition: Home Clinical Impression: Hypertension, uncontrolled Headache Qualifiers: Headache type: tension-type Headache chronicity pattern: acute headache Intractability: not intractable Qualified Code(s): G44.209 - Tension-type headache, unspecified, not intractable Condition: Stable Prescriptions: New Norvasc 10 mg tablet 10 mg PO DAILY Qty: 30 0RF No Action fluticasone propionate 110 mcg/actuation HFA aerosol inhaler 1 puff inhalation BID Qty: 12 5RF escitalopram oxalate 10 mg tablet See Rx Instructions .ROUTE .COMPLEX Qty: 90 2RF Dose Instruction: Take 1 tablet by mouth once daily Rx Instructions: Take 1 tablet by mouth once daily albuterol sulfate [ProAir HFA] 90 mcg/actuation HFA aerosol inhaler 1 inh inhalation QID PRN (Reason: shortness of breath or wheezing) Qty: 8.5 2RF ipratropium-albuterol 0.5 mg-3 mg(2.5 mg base)/3 mL solution for nebulization 3 ml inhalation Q4H PRN (Reason: wheezing) Qty: 90 2RF dicyclomine 10 mg capsule 10 mg PO BID Qty: 60 5RF alprazolam 0.25 mg tablet 0.25 mg PO DAILY PRN (Reason: anxiety) Qty: 30 2RF pantoprazole 40 mg tablet,delayed release (DR/EC) See Rx Instructions .ROUTE .COMPLEX Qty: 30 0RF Dose Instruction: Take 1 tablet by mouth once daily Rx Instructions: Take 1 tablet by mouth once daily montelukast 10 mg tablet See Rx Instructions .ROUTE .COMPLEX Qty: 30 0RF Dose Instruction: Take 1 tablet by mouth once daily Rx Instructions: Take 1 tablet by mouth once daily Discharge Orders: Discharge ED (Routine); Ordered 04/08/23 Ordered By: Brock Navarro Referrals: Colton Cardenas, DO [Primary Care Provider] - Discharge Diet: Low Salt Discharge Activity: Resume usual activity Patient Instructions: Opioid Safety, Pain Management Activity Restrictions/Additional Instructions: Activity Restrictions/Additional Instructions: Thank you for choosing [facility] [place] for your healthcare needs today. Please realize that you were seen in the Emergency Department and that we are providing you with an emergency medical screening exam and this may not be a complete and all inclusive of all the testing and or medical work-up that you may need to determine your ailment or severity of your illness. It is very important that you follow-up as instructed with your Primary care provider or Specialist for additional evaluation and to discuss your medical treatment plan. You may return to the Emergency Department should you have concerns or if your condition changes or worsens in any way. 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
--- NOTE | 2023-04-08 21:24 | ECG_ITS ---
[facility] Test Date: 2023-04-08 Pat Name: Bella King Department: Room: Gender: Female Site Technician: : 1980 Requested By: Brock Navarro Order Number: [id number] Eduardo MD: Urban Graf M.D. Measurements Intervals [place] Rate: 84 P: 11 NE: 114 QRS: 86 QRSD: 96 T: 47 QT: 404 QTc: 479 Interpretive Statements SINUS RHYTHM WITH SHORT NE INTERVAL Compared to ECG 05/25/2020 03:35:28 No significant changes Electronically Signed On 04-09-2023 8:20:42 BANQUET WAITER/WAITRESS by Urban Graf M.D. [id number]
[2023-04-08 22:00] LABS: Basophils % 0.3 %; Eosinophils # 0.2 10^3/uL (0.0-0.8); Eosinophils % 1.6 %; Lymphocytes # 3.9 10^3/uL (0.8-4.8); Lymphocytes % 32.8 %; Mean Corpuscular HGB Conc 33.4 g/dL (30-55); Mean Corpuscular Hemoglobin 28.3 pg (27-33); Mean Corpuscular Volume 84.8 fl (85-98); Mean Platelet Volume 9.8 fL (7.4-10.4); Monocytes # 0.6 10^3/uL (0.2-0.9); Monocytes % 4.9 %; Neutrophils # 7.18 10^3/uL (1.8-7.7); Neutrophils % 60.2 %; Nucleated Red Blood Cells % 0 %; Platelet Count 329 10^3/cmm (157-399); Red Blood Count 4.48 10^6/uL (3.85-5.65); White Blood Count 11.91 10^3/uL (3.29-11.43)
[2023-04-08 22:17] VITALS: BP 171/97
[2023-04-08] MEDS: cloNIDine 0.1 mg Tablet PO (22:17)
[2023-04-08 22:18] LABS: Alanine Aminotransferase 40 U/L (0-33); Albumin Level 4.4 g/dL (3.5-5.2); Alkaline Phosphatase 91 U/L (35-105); Aspartate Amino Transferase 30 U/L (0-32); Blood Urea Nitrogen 12 mg/dL (6-20); Calcium 9.4 mg/dL (8.5-10.5); Carbon Dioxide 23 mmol/L (22-29); Chloride 101 mmol/L (98-107); Creatinine Clr Calc Pharmacy 150.3051; Glomerular Filtration Rate 110.2 mL/min (90-130); Glucose 106 mg/dL (65-115); Osmolality Calculated 284 mOsm/kg (285-295); Sodium 137 mmol/L (136-145); Total Bilirubin 0.3 mg/dL (0.15-1.2); Total Protein 7.4 g/dL (6.6-8.7)
[2023-04-08 23:36] VITALS: BP 153/97; PULSE 87; RESP 18; O2SAT 97
[2023-04-08] MEDS: ketorolac 30 mg/mL INJ IVP (23:38)
== END 2023-04-08 23:39 | disposition home or self-care (01) ==
PROVIDERS: Emergency Provider Internal Medicine; PCP Family Medicine
DX: G44.209 Tension-type headache, unspecified, not intractable (principal); I10 Essential (primary) hypertension
CPT/HCPCS: 80053; 85025; 93005; 96374; 99284; J1885

== ENCOUNTER 2023-09-25 05:43 | Emergency (ER) | payer MEDICAID, SELFPAY ==
[2023-09-25 05:52] VITALS: PULSE 103; RESP 16; TEMP 36.7; O2SAT 97; BMI 44.2
--- NOTE | 2023-09-25 06:16 | W.ED.GENADLT ---
HPI - General Adult General: Chief complaint: General Medical Stated complaint: N/V, Fever Time Seen by Provider: 09/25/23 05:51 Source: patient Mode of arrival: ambulatory History of Present Illness: 43-year-old female presents emergency room with complaints of headache and elevated blood pressure. Throughout the night she has been wakes complaining of headache mostly at the crown of her head. She also relates that since she hit her head 14 months ago on a door she just has not felt right. She has a primary care doctor whom she has seen for hypertension in the past she was started on amlodipine and valsartan reviewing her chart it does not look like she has had follow-up with them she has not been taking the medications because she decided having side effects. She also has a history of asthma and she is on Advair. She took a Xanax before coming in because she thought some of her symptoms may be related to anxiety. Her initial stated complaint on the triage data is nausea vomiting and fever although she does not cite having fever vomiting she has been nauseous for. When I took her patient was mostly focused on her headache and her elevated blood pressure. She also had a brief episode of right-sided facial numbness. Onset (ago): minute(s) Associated symptoms: Deny chest pain, dyspnea or rash Review of Systems Const: Denies: fever(s) or chills Card: Denies: chest pain Resp: Denies: dyspnea GI: Denies: abdominal pain : Denies: dysuria, urinary frequency or urinary urgency Musc: Denies: neck pain or back pain Skin/Breast: Denies: rash [facility] PFSH: Medical History (Updated 09/25/23 @ 08:40 by Saul Galindo DO) Essential hypertension IBS (irritable bowel syndrome) GERD without esophagitis Mild persistent asthma Obesity (BMI 30-39.9) Generalized anxiety disorder with panic attacks Social History Smoking and tobacco/nicotine status: never used tobacco/nicotine Alcohol intake: never Substance/Drug Use: never Female Reproductive History: Spontaneous abortions: No Physical Exam Const: GENERAL APPEARANCE: cooperative and comfortable ORIENTATION/CONSCIOUSNESS: Yes awake, Yes oriented to person, Yes oriented to place and Yes oriented to time HENMT: COMMON NORMALS: normocephalic, atraumatic and hearing grossly normal bilaterally HEAD & SCALP: normocephalic and atraumatic Resp: COMMON NORMALS: normal respiratory effort, No retractions, No use of accessory muscles and clear to auscultation bilaterally AUSCULTATION: clear to auscultation bilaterally Cardio: COMMON NORMALS: regular rate, regular rhythm and No murmurs present (Cardio) RATE: regular rate RHYTHM: regular rhythm GI: COMMON NORMALS: Soft to palpation and No hepatosplenomegaly present AUSCULTATION: Yes normoactive bowel sounds PALPATION: Yes Soft to palpation, No Tenderness to palpation present (GI), No Guarding due to palpation present (GI) and Yes No hepatosplenomegaly present Extremity: COMMON NORMALS: normal to inspection, capillary refill normal, no clubbing, cyanosis or edema, no calf tenderness and no pedal edema Neuro: SENSORIUM/ORIENTATION: Yes oriented to person, Yes oriented to place and Yes oriented to time Skin: COMMON NORMALS: no rashes or lesions noted GENERAL SKIN EXAM: no rashes or lesions noted Course Vital Signs: Vital signs: Vital Signs Temperature 98.1 F 09/25/23 05:52 Pulse Rate 66 09/25/23 08:59 Respiratory Rate 16 09/25/23 08:59 Blood Pressure 143/98 09/25/23 08:59 Pulse Oximetry 98 09/25/23 08:59 Oxygen Delivery Me thod Room Air 09/25/23 06:18 [facility] - General Adult Medical Decision Making Symptoms improved with blood pressure improving. Labs and imaging reviewed no acute findings. Will discharge patient home start on amlodipine 5 mg daily. Previously she was on 10 and had some side effects discussed without side effects are often dose-related and a lower dose may be more tolerable. Also expressed the importance of following up with your primary care doctor to monitor blood sugar and make further adjustments. Medical Records I reviewed the patient's medical records. Lab Data I reviewed the patient's lab results. 09/25/23 06:11 09/25/23 06:[address] 09/25/23 06:43 IMPRESSION: No acute intracranial abnormality. Laboratory Results WBC 11.32 10^3/uL (3.29-11.43) 09/25/23 06:11 RBC 4.24 10^6/uL (3.85-5.65) 09/25/23 06:11 Hgb 12.20 g/dL (11.27-16.99) 09/25/23 06:11 Hct 35.6 % (36-47) L 09/25/23 06:11 MCV 84.0 fl (85-98) L 09/25/23 06:11 MCH 28.8 pg (27-33) 09/25/23 06:11 MCHC 34.3 g/dL (30-55) 09/25/23 06:11 RDW 13.2 % (12.1-15.1) 09/25/23 06:11 Plt Count 320 10^3/cmm (157-399) 09/25/23 06:11 MPV 9.6 fL (7.4-10.4) 09/25/23 06:11 Neut % (Auto) 60.2 % 09/25/23 06:11 Lymph % (Auto) 33.7 % 09/25/23 06:11 [place] % (Auto) 3.5 % 09/25/23 06:11 Eos % (Auto) 1.9 % 09/25/23 06:11 Baso % (Auto) 0.4 % 09/25/23 06:11 Neut # (Auto) 6.81 10^3/uL (1.8-7.7) 09/25/23 06:11 Lymph # (Auto) 3.8 10^3/uL (0.8-4.8) 09/25/23 06:11 [place] # (Auto) 0.4 10^3/uL (0.2-0.9) 09/25/23 06:11 Eos # (Auto) 0.2 10^3/uL (0.0-0.8) 09/25/23 06:11 Baso # (Auto) 0.1 10^3/uL (0.0-0.1) 09/25/23 06:11 Nucleated RBC % (auto) 0 % 09/25/23 06:11 Nucleated RBCs # 0.0 /100WBC 09/25/23 06:11 Sodium 136 mmol/L (136-145) 09/25/23 06:11 Potassium 3.7 mmol/L (3.5-5.1) 09/25/23 06:11 Chloride 103 mmol/L (98-107) 09/25/23 06:11 Carbon Dioxide 21 mmol/L (22-29) L 09/25/23 06:11 Anion Gap 15.7 (5-19) 09/25/23 06:11 BUN 8 mg/dL (6-20) 09/25/23 06:11 Creatinine 0.6 mg/dL (0.5-0.9) 09/25/23 06:11 GFR Calculation 109.6 mL/min (90-130) 09/25/23 06:11 Glucose 124 mg/dL (65-115) H 09/25/23 06:11 Calculated Osmolality 282 mOsm/kg (285-295) L 09/25/23 06:11 Calcium 8.8 mg/dL (8.5-10.5) 09/25/23 06:11 Total Bilirubin 0.3 mg/dL (0.15-1.2) 09/25/23 06:11 AST 22 U/L (0-32) 09/25/23 06:11 ALT 19 U/L (0-33) 09/25/23 06:11 Alkaline Phosphatase 90 U/L (35-105) 09/25/23 06:11 Total Protein 7.3 g/dL (6.6-8.7) 09/25/23 06:11 Albumin 3.9 g/dL (3.5-5.2) 09/25/23 06:11 Globulin 3.4 g/dL (1.3-4.6) 09/25/23 06:11 Lipase 35 U/L (13-60) 09/25/23 06:11 Urine Color Yellow (Yellow) 09/25/23 06:51 Urine Appearance Slightly cloudy (CLEAR) 09/25/23 06:51 Urine pH 5 (5-7) 09/25/23 06:51 Ur Specific Violet 1.020 (1.005-1.030) 09/25/23 06:51 Urine Protein Neg (Negative) 09/25/23 06:51 Urine Glucose (UA) Norm (Normal) 09/25/23 06:51 Urine Ketones Negative (Negative) 09/25/23 06:51 Urine Blood 3+ (Negative) H 09/25/23 06:51 Urine Nitrate Negative (Negative) 09/25/23 06:51 Urine Bilirubin Neg (Negative) 09/25/23 06:51 Urine Urobilinogen Neg mg/dL (Negative) 09/25/23 06:51 Ur Leukocyte Esterase 1+ (Negative) H 09/25/23 06:51 Urine RBC 25-40 /hpf (0-2) H 09/25/23 06:51 Urine WBC 5-10 /hpf (0-5) H 09/25/23 06:51 Ur Squamous Epith Cells 10-15 /hpf (0-5) H 09/25/23 06:51 Amorphous Sediment Not Reportable 09/25/23 06:51 Urine Bacteria 2+ /hpf (NONE) H 09/25/23 06:51 Urine Mucus Trace /hpf 09/25/23 06:51 All radiology interpretation(s) finalized by discharge Discharge Plan Discharge Patient Disposition: Home Clinical Impression: Essential hypertension, Headache Condition: Stable Prescriptions: New amlodipine 5 mg tablet 5 mg PO DAILY Qty: 30 0RF Discontinued valsartan 160 mg tablet 160 mg PO DAILY Qty: 30 2RF Rx Instructions: Take 1/2 tab x 2 weeks then increase to one tab daily. amlodipine [Norvasc] 10 mg tablet 10 mg PO DAILY Qty: 30 0RF No Action fluticasone propionate 110 mcg/actuation HFA aerosol inhaler 1 puff inhalation BID Qty: 12 5RF albuterol sulfate [ProAir HFA] 90 mcg/actuation HFA aerosol inhaler 1 inh inhalation QID PRN (Reason: shortness of breath or wheezing) Qty: 8.5 2RF escitalopram oxalate 20 mg tablet See Rx Instructions .ROUTE .COMPLEX Qty: 90 2RF Dose Instruction: Take 1 tablet by mouth once daily Rx Instructions: Take 1 tablet by mouth once daily montelukast 10 mg tablet See Rx Instructions .ROUTE .COMPLEX Qty: 30 5RF Dose Instruction: Take 1 tablet by mouth once daily Rx Instructions: Take 1 tablet by mouth once daily ipratropium-albuterol 0.5 mg-3 mg(2.5 mg base)/3 mL solution for nebulization 3 ml inhalation Q4H PRN (Reason: wheezing) Qty: 90 2RF dicyclomine 10 mg capsule 10 mg PO BID Qty: 60 5RF alprazolam 0.25 mg tablet 0.25 mg PO DAILY PRN (Reason: anxiety) Qty: 30 2RF pantoprazole 40 mg tablet,delayed release (DR/EC) See Rx Instructions .ROUTE .COMPLEX Qty: 30 0RF Dose Instruction: Take 1 tablet by mouth once daily Rx Instructions: Take 1 tablet by mouth once daily fluticasone propion-salmeterol [Advair Diskus] 250-50 mcg/dose blister with device See Rx Instructions .ROUTE .COMPLEX Qty: 60 4RF Dose Instruction: INHALE 1 DOSE BY MOUTH TWICE DAILY Rx Instructions: INHALE 1 DOSE BY MOUTH TWICE DAILY Discharge Orders: Discharge ED (Routine); Ordered 09/25/23 Ordered By: Saul Galindo Referrals: Colton Cardenas, [Primary Care Provider] - Discharge Diet: Usual diet Discharge Activity: Increase activity as tolerated Patient Instructions: Opioid Safety, Pain Management Activity Restrictions/Additional Instructions: Thank you for choosing [facility] for your healthcare needs today. Please realize this is an emergency room and that we are providing you with a medical screening exam and this may not be complete and all inclusive of all the testing and or work up that you may need to determine your ailment or severity of your illness. It is very important that you follow up as instructed or that you return to the Emergency Department should you have concerns or if your condition changes or worsens in any way. You were seen today with complaint of elevated blood pressure and headache. CT of your head was negative. Your blood pressure did improve with medications given. Recommend that you start amlodipine at a lower dose 5 mg daily. This may not be adequate to completely control your blood pressure but is a good starting point. Would recommend that you follow-up with your doctor within the next 7 to 10 days to reevaluate your blood pressure control. Coding Level of Care Code ED [facility] NIH stroke score NIHSS Level Of Consciousness - 1a: 0 Level Of Consciousness Questions - 1b: Both Correct Level Of Consciousness Commands - 1c: Both Correct Best Gaze - 2: Normal Visual Jean - 3: No Visual Loss Facial Palsy - 4: Normal Motor Arm Right - 5: No Drift Motor Arm Left - 5: No Drift Motor Leg Right - 6: No Drift Motor Leg Left - 6: No Drift Limb Ataxia - 7: Absent Sensory - 8: Normal Best Language - 9: No Aphasia Dysarthia - 10: Normal Extinction And Inattention - 11: 0 Score Total Score: 0
[2023-09-25 06:18] VITALS: BP 149/115; PULSE 96; RESP 18; O2SAT 98
[2023-09-25 06:24] LABS: Basophils # 0.1 10^3/uL (0.0-0.1); Basophils % 0.4 %; Eosinophils # 0.2 10^3/uL (0.0-0.8); Eosinophils % 1.9 %; Hematocrit 35.6 % (36-47); Lymphocytes # 3.8 10^3/uL (0.8-4.8); Lymphocytes % 33.7 %; Mean Corpuscular HGB Conc 34.3 g/dL (30-55); Mean Corpuscular Hemoglobin 28.8 pg (27-33); Mean Platelet Volume 9.6 fL (7.4-10.4); Monocytes # 0.4 10^3/uL (0.2-0.9); Monocytes % 3.5 %; Neutrophils # 6.81 10^3/uL (1.8-7.7); Neutrophils % 60.2 %; Nucleated Red Blood Cells % 0 %; Platelet Count 320 10^3/cmm (157-399); Red Blood Count 4.24 10^6/uL (3.85-5.65); Red Cell Distribution Width 13.2 % (12.1-15.1); White Blood Count 11.32 10^3/uL (3.29-11.43)
[2023-09-25] MEDS: metoprolol tartrate 25 mg Tablet PO (06:33)
[2023-09-25] MEDS: sodium chloride 0.9% 1,000 ML 999 ML IV (06:36)
[2023-09-25] MEDS: ondansetron 2 mg/ML SDV 2 mL 4 MG IVP (06:37)
--- NOTE | 2023-09-25 06:43 | CTR_ITS ---
PROCEDURE INFORMATION: Exam: CT Head Without Contrast Exam date and time: 09/25/2023 7:01 AM Age: 43 years old Clinical indication: Pain; Headache TECHNIQUE: Imaging protocol: Computed tomography of the head without contrast. Radiation optimization: All CT scans at this facility use at least one of these dose optimization techniques: automated exposure control; mA and/or kV adjustment per patient size (includes targeted exams where dose is matched to clinical indication); or iterative reconstruction. COMPARISON: No relevant prior studies available. RADIATION DOSE METRICS: Total DLP (mGy-cm): 1005.88 FINDINGS: Brain: Normal. No hemorrhage. No mass effect or midline shift. Cortical sulci and white matter are unremarkable for age. Cerebral ventricles: Unremarkable for age. Paranasal sinuses: Visualized sinuses are unremarkable. No fluid levels. Mastoid air cells: Visualized mastoid air cells are well aerated. Bones: Unremarkable. No acute fracture. Soft tissues: Unremarkable. CT/CT head wo con* [id number] IMPRESSION: No acute intracranial abnormality.
[2023-09-25 06:45] LABS: Alanine Aminotransferase 19 U/L (0-33); Albumin Level 3.9 g/dL (3.5-5.2); Alkaline Phosphatase 90 U/L (35-105); Anion Gap 15.7 (5-19); Aspartate Amino Transferase 22 U/L (0-32); Blood Urea Nitrogen 8 mg/dL (6-20); Calcium 8.8 mg/dL (8.5-10.5); Carbon Dioxide 21 mmol/L (22-29); Chloride 103 mmol/L (98-107); Creatinine Clr Calc Pharmacy 148.0873; Globulin 3.4 g/dL (1.3-4.6); Glomerular Filtration Rate 109.6 mL/min (90-130); Glucose 124 mg/dL (65-115); Lipase 35 U/L (13-60); Osmolality Calculated 282 mOsm/kg (285-295); Potassium 3.7 mmol/L (3.5-5.1); Sodium 136 mmol/L (136-145); Total Bilirubin 0.3 mg/dL (0.15-1.2); Total Protein 7.3 g/dL (6.6-8.7)
--- NOTE | 2023-09-25 06:47 | ECG_ITS ---
[facility] Test Date: 2023-09-25 Pat Name: Bella King Department: Room: Gender: Female Medical Billing Assistant: : 1980 Requested By: Saul Dasilva Order Number: [id number] Eduardo MD: Simon Szymanski M.D. Measurements Intervals [place] Rate: 74 P: 37 IA: 129 QRS: 57 QRSD: 97 T: 20 QT: 403 QTc: 448 Interpretive Statements SINUS RHYTHM Compared to ECG 04/08/2023 21:24:31 Short IA interval no longer present Electronically Signed On 09-25-2023 15:47:37 CDT by Simon Szymanski M.D. [id number]
[2023-09-25 07:33] LABS: Bilirubin Urine Neg (Negative); Blood Urine 3+ (Negative); Glucose Urine UA Norm (Normal); Ketones Urine Negative (Negative); Leukocyte Esterase Urine 1+ (Negative); Nitrate Urine Negative (Negative); Protein Urine Neg (Negative); Urine Appearance Slightly Cloudy (CLEAR); Urine Color Yellow (Yellow); Urobilinogen Urine Neg (Negative); pH Urine 5 (5-7)
[2023-09-25 07:34] LABS: Add Urine Culture? No; Add Urine Microscopic? YES; Bacteria Urine 2+ /hpf; Mucus Urine TRACE /hpf; RBC Urine 25-40 /hpf (0-2)
[2023-09-25 07:43] VITALS: BP 154/95
[2023-09-25 08:59] VITALS: BP 143/98; PULSE 66; RESP 16; O2SAT 98
== END 2023-09-25 09:01 | disposition home or self-care (01) ==
PROVIDERS: Emergency Provider Family Medicine; PCP Family Medicine
DX: R51.9 Headache, unspecified (principal); I10 Essential (primary) hypertension
CPT/HCPCS: 70450; 80053; 81001; 83690; 85025; 93005; 96361; 96374; 99285; J2405; J7030